=== PATIENT | female | born 1940 | race Caucasian/White ===

== ENCOUNTER → 2017-02-15 | Outpatient (CLI) | payer MEDICARE, BC | LOC: BHSO 08:56 | DX: F33.41 Major depressive disorder, recurrent, in partial remission (principal) ==

== ENCOUNTER → 2017-09-20 | Outpatient (CLI) | payer MEDICARE, BC | LOC: BHSO 08:52 | DX: F41.1 Generalized anxiety disorder (principal) ==

== ENCOUNTER 2017-10-11 07:36 | Day surgery (SDC) | payer MEDICARE, BC ==
[~2017-10-11] VITALS: Ht 167.6 cm; Wt 66.6 kg
[2017-10-11] MEDS ORDERED: SYNTHROID 0.0.025 MG PO ×2 (07:56→07:57)
[2017-10-11] MEDS ORDERED: ATIVAN 0.50.5 MG/TAB PO (07:58)
[2017-10-11] MEDS ORDERED: ZETIA 10MG TAB10 MG PO (07:59)
[2017-10-11] MEDS ORDERED: BRINTELLIX20 PO (07:59)
[2017-10-11] MEDS ORDERED: DITROPAN 5MG TAB5 MG PO (08:00)
[2017-10-11] MEDS ORDERED: FLONASE NASAL S16 GM NS (08:03)
[2017-10-11] MEDS ORDERED: MULTI-VITAMIN W1 TA1 PO (08:05)
[2017-10-11] MEDS ORDERED: OMEGA-31 SGL PO (08:06)
[2017-10-11] MEDS ORDERED: B COMPLEX #11 TAB PO (08:07)
[2017-10-11] MEDS ORDERED: GLUCOSAMINE & C1 CA2 PO (08:08)
[2017-10-11] MEDS ORDERED: CALCIUM-MAGNES1 EAC1 PO (08:09)
[2017-10-11] MEDS ORDERED: NIASPAN1000 MG PO (08:10)
[2017-10-11] MEDS ORDERED: D3 PO (08:11)
[2017-10-11] MEDS ORDERED: PREVACID 15MG15 M1 PO (08:14)
[2017-10-11 08:41] VITALS: BP 177/78; PULSE 71; TEMP 97.7
[2017-10-11 09:20] VITALS: BP 144/93; PULSE 72; TEMP 98.1
[2017-10-11 09:30] VITALS: BP 142/78; PULSE 70; TEMP 98.1
[2017-10-11 09:45] VITALS: BP 153/74; PULSE 64
[2017-10-11 10:00] VITALS: BP 176/87; PULSE 67
== END 2017-10-11 14:17 | disposition home or self-care (01) ==
LOC: SDCO 07:36
DX: K57.30 Diverticulosis of large intestine without perforation or abscess without bleeding (principal); K64.0 First degree hemorrhoids; E03.9 Hypothyroidism, unspecified; K21.9 Gastro-esophageal reflux disease without esophagitis; Z90.710 Acquired absence of both cervix and uterus
CPT/HCPCS: OP; J2250; J3010; J7030

== ENCOUNTER → 2018-01-17 | Outpatient (CLI) | payer MEDICARE, BC ==
[~2018-01-17] MED LIST: ATIVAN 0.50.5 MG/TAB PO; B COMPLEX #11 TAB PO; BRINTELLIX20 PO; CALCIUM-MAGNES1 EAC1 PO; D3 PO; DITROPAN 5MG TAB5 MG PO; FLONASE NASAL S16 GM NS; GLUCOSAMINE & C1 CA2 PO; MULTI-VITAMIN W1 TA1 PO; NIASPAN1000 MG PO; OMEGA-31 SGL PO; PREVACID 15MG15 M1 PO; SYNTHROID 0.0.025 MG PO; ZETIA 10MG TAB10 MG PO
== END ==
LOC: MC.RAD 09:00
DX: Z12.31 Encounter for screening mammogram for malignant neoplasm of breast (principal)

== ENCOUNTER → 2018-03-21 | Outpatient (CLI) | payer MEDICARE, BC | LOC: BHSO 09:15 | DX: F90.0 Attention-deficit hyperactivity disorder, predominantly inattentive type (principal) | CPT/HCPCS: G0463 ==

== ENCOUNTER → 2018-06-21 | Outpatient (CLI) | payer MEDICARE, BC | LOC: BHSO 08:56 | DX: F33.41 Major depressive disorder, recurrent, in partial remission (principal) | CPT/HCPCS: G0463 ==

== ENCOUNTER → 2018-09-19 | Outpatient (CLI) | payer MEDICARE, BC | LOC: BHSO 08:56 | DX: F33.42 Major depressive disorder, recurrent, in full remission (principal) | CPT/HCPCS: G0463 ==

== ENCOUNTER → 2019-03-13 | Outpatient (CLI) | payer MEDICARE, BC | LOC: MC.RAD 08:43 | DX: Z12.31 Encounter for screening mammogram for malignant neoplasm of breast (principal) ==

== ENCOUNTER → 2019-04-03 | Outpatient (CLI) | payer MEDICARE, BC | LOC: BHSO 08:55 | DX: F33.42 Major depressive disorder, recurrent, in full remission (principal) | CPT/HCPCS: G0463 ==

== ENCOUNTER → 2019-10-02 | Outpatient (CLI) | payer MEDICARE, BC | LOC: BHSO 08:56 | DX: F41.1 Generalized anxiety disorder (principal) | CPT/HCPCS: G0463 ==

== ENCOUNTER → 2020-04-01 | Outpatient (CLI) | payer MEDICARE, BC | LOC: BHSO 09:01 | DX: F33.42 Major depressive disorder, recurrent, in full remission (principal) | CPT/HCPCS: G0463 ==

== ENCOUNTER → 2020-08-15 | Outpatient (CLI) | payer MEDICARE, BC | LOC: BHSO 08:58 | DX: F33.41 Major depressive disorder, recurrent, in partial remission (principal) | CPT/HCPCS: G0463 ==